=== PATIENT | male | born 1990 ===

== ENCOUNTER 2018-07-24 17:50 | Emergency (ER) | payer OTHER ==
[2018-07-24 18:51] VITALS: BP 136/62; PULSE 64; RESP 16; TEMP 98.2; O2SAT 100
[2018-07-24] MEDS: Lidocaine 5% Patch TD STA (19:20)
--- NOTE | 2018-07-24 20:15 | ED PDOC ---
HPI: Back Time Seen by Provider: 07/24/18 18:54 Chief Complaint (Nursing): Back Pain Chief Complaint (Provider): Back Pain History Per: Patient History/Exam Limitations: no limitations Onset/Duration Of Symptoms: Persistent (x2 months), Worse Since (yesterday) Current Symptoms Are (Timing): Constant Additional Complaint(s): 28 year old male presents to the ED for evaluation of chronic lower back pain for two months s/p an injury at work that radiates down his bilateral lower extremities, with worsening constant pain since yesterday. Patient notes getting epidural injections in his lower back along with going to PT, but after lying supine on his couch yesterday for 50 minutes, it has been worsening. Reports it further worsened while driving to the ED today. Of note, patient states he prefers no oral medications so has not taken any at home. Otherwise, denies trauma, dysuria, incontinence, hematuria, nausea, vomiting, fever, chills, abdominal pain, and saddle anesthesia. PMD: none provided Past Medical History Reviewed: Historical Data, Nursing Documentation, Vital Signs Vital Signs: Last Vital Signs Temp 98.2 F 07/24/18 18:46 Pulse 64 07/24/18 18:46 Resp 16 07/24/18 18:46 BP 136/62 07/24/18 18:46 Pulse Ox 100 07/24/18 18:46 - Medical History PMH: No Chronic Diseases - Surgical History Surgical History: No Surg Hx - Family History Family History: States: Unknown Family Hx - Social History Current smoker - smoking cessation education provided: No Alcohol: Social Drugs: Denies - Home Medications Home Medications: Ambulatory Orders Medication Instructions Recorded Cyclobenzaprine [Cyclobenzaprine 10 mg PO Q8 PRN #10 tab 07/24/18 HCl] Lidocaine 5% [Lidoderm] 1 ea TD DAILY PRN #10 patch 07/24/18 RX: Naproxen [Naprosyn] 500 mg PO BID PRN #10 tab 07/24/18 - Allergies Allergies/Adverse Reactions: Allergies Allergy/AdvReac Type Severity Reaction Status Date / Time morphine Allergy SHORTNESS Verified 07/24/18 18:46 OF BREATH Review of Systems ROS Statement: Except As Marked, All Systems Reviewed And Found Negative Constitutional: Negative for: Fever, Chills Gastrointestinal: Negative for: Nausea, Vomiting, Abdominal Pain Genitourinary Male: Negative for: Dysuria, Incontinence, Hematuria Musculoskeletal: Positive for: Back Pain (lower, radiating down bilateral LE) Neurological: Negative for: Other (saddle anesthesias) Physical Exam - Reviewed Nursing Documentation Reviewed: Yes Vital Signs Reviewed: Yes - Physical Exam Appears: Positive for: In Acute Distress (mild painful) Cardiovascular/Chest: Positive for: Regular Rate, Rhythm Respiratory: Positive for: Normal Breath Sounds. Negative for: Respiratory Distress Gastrointestinal/Abdominal: Positive for: Normal Exam, Soft. Negative for: Tenderness Back: Positive for: Normal Inspection, Other (bilateral paralumbar tenderness). Negative for: L CVA Tenderness, R CVA Tenderness, Vertebral Tenderness - ECG O2 Sat by Pulse Oximetry: 100 (RA) Pulse Ox Interpretation: Normal Medical Decision Making Medical Decision Making: Time: 1916 Initial Impression: back pain Initial Plan: --Lidoderm 5% --Toradol 30mg IM On re-evaluation, pt. reports pain is still present but has improved. Advised to f/u with his back specialist for further evaluation but is to return to ED immediately if symptoms worsen. Scribe Attestation: Documented by Dorothea Brantley, acting as a scribe for Moreno Miguel PA-C Provider Scribe Attestation: All medical record entries made by the Scribe were at my direction and personally dictated by me. I have reviewed the chart and agree that the record accurately reflects my personal performance of the history, physical exam, medical decision making, and the department course for this patient. I have also personally directed, reviewed, and agree with the discharge instructions and disposition. Disposition - Clinical Impression Clinical Impression: Low back pain - Patient ED Disposition Is Patient to be Admitted: No - Disposition Referrals: [facility] [Outside] [facility] [Outside] Disposition: Routine/Home Disposition Time: 20:00 Condition: IMPROVED Additional Instructions: RETURN TO ED IMMEDIATELY IF SYMPTOMS WORSEN FOLLOW UP WITH YOUR DOCTOR FOR FURTHER EVALUATION LISSY JOHNSON, thank you for letting us take care of you today. Your provider was Lakhwinder Lal III, DO and you were treated for WC: LEG NUMBNESS, BACK PAIN. The emergency medical care you received today was directed at your acute symptoms. If you were prescribed any medication, please fill it and take as directed. It may take several days for your symptoms to resolve. Return to the Emergency Department if your symptoms worsen, do not improve, or if you have any other problems. Please contact your doctor or call one of the physicians/clinics you have been referred to that are listed on the Patient Visit Information form that is included in your discharge packet. Bring any paperwork you were given at discharge with you along with any medications you are taking to your follow up visit. Our treatment cannot replace ongoing medical care by a primary care provider outside of the emergency department. Thank you for allowing the [facility] team to be part of your care today. If you had an X-Ray or CT scan: A Radiologist will review the ED reading if any change in treatment is needed we will contact you. If you had a blood, urine, or wound culture: It will take several days for the results, if any change in treatment is needed we will contact you. If you had an STI test: It will take 48 hours for the results. Please call after 1 week if you have not heard back. Prescriptions: Cyclobenzaprine [Cyclobenzaprine HCl] 10 mg PO Q8 PRN #10 tab PRN Reason: Muscle Spasm Lidocaine 5% [Lidoderm] 1 ea TD DAILY PRN #10 patch PRN Reason: Pain RX: Naproxen [Naprosyn] 500 mg PO BID PRN #10 tab PRN Reason: Pain Instructions: Low Back Pain (DC) Forms: [employer]epages (Hungarian)
== END 2018-07-24 20:11 | disposition home or self-care (01) ==
LOC: H.ER 17:50
DX: M54.5 Low back pain (principal); Y99.0 Civilian activity done for income or pay
CPT/HCPCS: 96372; 99283; J1885